=== PATIENT | female | born 1990 | race Two or more races ===

== ENCOUNTER 2021-05-01 02:30 | Emergency (ER) | payer MEDICAID ==
[~2021-05-01] VITALS: Ht 165.1 cm; Wt 56.8 kg
--- NOTE | 2021-05-01 02:38 | PHYS DOC ---
Adult General Chief Complaint Chief Complaint: ANXIETY/PANIC ATTACK HPI HPI Patient is a 30-year-old female with a past medical history for anxiety who presents with an anxiety/panic attack which started just before coming into the emergency department. Patient states that she has been off of her medications that she used for anxiety, hydroxyzine for several months now as she has not seen her physician. States it started right before she was about to go to bed as it usually does, feel scared like she wants to run away but is not sure where she is running to and feels like her heart racing. Denies any recent traumas, travels, illnesses, fevers, chest pain, shortness of breath, abdominal pain, nausea, vomiting, dysuria, hematuria, diarrhea or blood in the stool. Denies any alcohol or drug use. Review of Systems Review of Systems Review of systems otherwise unremarkable except noted in HPI Physical Exam Physical Exam Constitutional: Well developed, well nourished, no acute distress, non-toxic appearance. [] HENT: Normocephalic, atraumatic, Eyes: conjunctiva normal, no discharge. [] Neck: Normal range of motion, no tenderness, supple, no stridor. [] Cardiovascular:Heart rate regular rhythm, no murmur [] Lungs & Thorax: Bilateral breath sounds clear to auscultation [] Abdomen: soft, no tenderness, no masses, no pulsatile masses. [] Skin: Warm, dry, no erythema, no rash. [] Extremities: No tenderness, ROM intact, no edema. [] Neurologic: Alert and oriented X 3, normal motor function, normal sensory function, able to sit, stand and walk without issue no focal deficits noted. [] Psychologic: Affect normal, judgement normal, mood anxious, no SI, no HI, no hallucinations [] EKG EKG [] Radiology/Procedures Radiology/Procedures [] Heart Score C/O Chest Pain: No Risk Factors: Risk Factors: DM, Current or recent (<one month) smoker, HTN, HLP, family history of CAD, obesity. Risk Scores: Risk Factors: DM, Current or recent (<one month) smoker, HTN, HLP, family history of CAD, obesity. Course & Med Decision Making Course & Med Decision Making Patient is a 30-year-old female presents with anxiety attack Vital signs not concerning. Physical exam noted above. Given oral diazepam. Discussed strategies for anxiety control at home. Advised to call primary care physician in the morning and set up a follow-up as soon as possible to discuss management of anxiety, and panic attacks at home. Gave return precautions to the ED. Patient grateful, verbalized understanding and agreed with plan of discharge. [] Dragon Disclaimer Dragon Disclaimer This electronic medical record was generated, in whole or in part, using a voice recognition dictation system. Departure Departure: Impression: Primary Impression: Panic attack Disposition: HOME / SELF CARE / HOMELESS Condition: GOOD Referrals: IZAIAH LEMOS Patient Instructions: Anxiety and Panic Attacks Additional Instructions: Thank you for coming into the emergency department tonight and allowing us to take care of you. Please read all the attached information above carefully to go back over things we discussed. You were given diazepam/Valium in the emergency department which is an antianxiety medicine that has a long half-life and should provide 1 to 2 days of anxiety relief. Please call your primary care physician first thing this morning to update on your ED visit and set up a follow-up as needed. Please come back to the ED with new or concerning symptoms as discussed. MITESH GANT MD May 01, 2021 02:38
[2021-05-01 02:42] VITALS: BP 118/76
[2021-05-01] MEDS ORDERED: HYDR25TA PO (02:56)
[2021-05-01] MEDS ORDERED: diazePAM 5 MG TABLET. PO ONE (03:00)
== END 2021-05-01 03:06 | disposition home or self-care (01) ==
LOC: ER 02:30
DX: F41.0 Panic disorder [episodic paroxysmal anxiety] (principal)
CPT/HCPCS: 81025; 99283